=== PATIENT | female | born 1935 | race Caucasian/White ===

== ENCOUNTER → 2017-04-21 | Outpatient (CLI) | payer OTHER | END | disposition home or self-care (01) | LOC: CFH 13:47 | PROVIDERS: ATTEND Nurse Practitioner Primary Care | DX: Z12.31 Encounter for screening mammogram for malignant neoplasm of breast (principal) | CPT/HCPCS: G0202 ==

== ENCOUNTER → 2017-04-30 | Outpatient (CLI) | payer OTHER | END | disposition home or self-care (01) | LOC: CFH 13:52 | PROVIDERS: ATTEND Nurse Practitioner Primary Care | DX: R42 Dizziness and giddiness (principal) | CPT/HCPCS: 93880 ==

== ENCOUNTER → 2017-07-01 | Outpatient (CLI) | payer OTHER | END | disposition home or self-care (01) | LOC: CFH 13:38 | PROVIDERS: ATTEND Internal Medicine Cardiovascular Disease | DX: I34.8 Other nonrheumatic mitral valve disorders (principal); R55 Syncope and collapse | CPT/HCPCS: 93306 ==

== ENCOUNTER 2017-08-20 10:11 | Day surgery (SDC) | payer OTHER ==
[~2017-08-20] VITALS: Ht 168.9 cm; Wt 62.7 kg
[2017-08-20 10:46] VITALS: BP 165/78
[2017-08-20] MEDS ORDERED: LIDOCAINE 1%-EPI 1:100K, 20ML SQ PRN (11:00)
[2017-08-20] MEDS ORDERED: DULO30CA2 PO (11:02)
[2017-08-20] MEDS ORDERED: SULF1TAB23 PO (11:02)
[2017-08-20] MEDS ORDERED: [UNRECOGNIZED DRUG - CODE] PO (11:02)
[2017-08-20] MEDS ORDERED: OXYC1TAB9 PO (11:02)
[2017-08-20] MEDS ORDERED: GABA300C10 PO (11:02)
[2017-08-20] MEDS ORDERED: LIDOCAINE 2% 100MG/5ML SYRINGE ONE (11:40)
== END 2017-08-20 12:50 ==
LOC: CACL 10:11
PROVIDERS: ATTEND Internal Medicine Cardiovascular Disease
DX: R00.2 Palpitations (principal); R55 Syncope and collapse; E78.5 Hyperlipidemia, unspecified; G89.4 Chronic pain syndrome; N28.9 Disorder of kidney and ureter, unspecified; Z88.6 Allergy status to analgesic agent
CPT/HCPCS: 33282; C1764

== ENCOUNTER → 2017-12-24 | Outpatient (CLI) | payer OTHER ==
[~2017-12-24] MED LIST: ASCO100019 PO; CALC-534 PO; CYAN50003 PO; DULO30CA2 PO; FERR325T17 PO; GABA300C10 PO; LACT1CAP35 PO; MIRT30TA6 PO; MULT-717 PO; OMEG1CAP6 PO; OXYC-432 PO; SIMV20TA3 PO; SULF1TAB23 PO; TRAZ-136 PO; VITA150T PO; [UNRECOGNIZED DRUG - CODE] PO
== END | disposition home or self-care (01) ==
LOC: STAR 11:04
PROVIDERS: ATTEND Thoracic Surgery (Cardiothoracic Vascular Surgery)
DX: Z01.818 Encounter for other preprocedural examination (principal)
CPT/HCPCS: 93005

== ENCOUNTER → 2017-12-28 | Outpatient (CLI) | payer OTHER ==
[~2017-12-28] MED LIST changes: +HYDR473S51 PO
== END | disposition home or self-care (01) ==
LOC: CARD 12:20
PROVIDERS: ATTEND Registered Nurse
DX: R55 Syncope and collapse (principal); M62.81 Muscle weakness (generalized)
CPT/HCPCS: 95819

== ENCOUNTER 2018-07-06 10:40 | Outpatient (CLI) | payer MEDICARE ==
[~2018-07-06 10:40] MED LIST changes: +CEFD300C37 PO; +FERR240T11 PO; +METR500T PO; -MIRT30TA6 PO; +MIRT30TA97 PO; -TRAZ-136 PO; +TRAZ50TA66 PO; -[UNRECOGNIZED DRUG - CODE] PO
== END 2018-07-06 23:59 | disposition home or self-care (01) ==
LOC: CFH 10:40
PROVIDERS: ATTEND Anesthesiology
DX: S33.120A Subluxation of L2/L3 lumbar vertebra, initial encounter (principal); M48.54XA Collapsed vertebra, not elsewhere classified, thoracic region, initial encounter for fracture; X58.XXXA Exposure to other specified factors, initial encounter; Y93.89 Activity, other specified; Y92.89 Other specified places as the place of occurrence of the external cause; Y99.8 Other external cause status
CPT/HCPCS: 72100

== ENCOUNTER 2019-03-02 09:07 | Emergency (ER) | payer MEDICARE ==
[~2019-03-02] VITALS: Ht 167.6 cm; Wt 62.7 kg
--- NOTE | 2019-03-02 10:04 | NUR ---
PT UPRIGHT ON GURNEY AWAKE & COMFORTABLE, RESPONDS APPROP TO STAFF, NAD AT REST, COMFORT MEASURES PROVIDED, AT BS, CALL LIGHT WITHIN REACH.
[2019-03-02 10:25] LABS: BASOPHILS # (AUTO) 0.05 x10^3/uL (0-0.1); BASOPHILS % (AUTO) 0 % (0-1); EOSINOPHILS # (AUTO) 1.25 x10^3/uL (0-0.4); EOSINOPHILS % (AUTO) 11 % (1-7); LYMPHOCYTES # (AUTO) 1.96 x10^3/uL (1-3.4); LYMPHOCYTES % (AUTO) 18 % (22-44); MD NO; MEAN CORPUSCULAR HEMOGLOBIN 31.1 pg (27.0-34.8); MEAN CORPUSCULAR HGB CONC 32.3 g/dL (32.4-35.8); MEAN CORPUSCULAR VOLUME 96.3 fL (80-100); MEAN PLATELET VOLUME 7.9 fL (7.4-10.4); MONOCYTES # (AUTO) 0.91 x10^3/uL (0.2-0.8); MONOCYTES % (AUTO) 8 % (2-9); NEUTROPHILS # (AUTO) 6.92 x10^3/uL (1.8-6.8); NEUTROPHILS % (AUTO) 62 % (42-75); PLATELET COUNT 256 x10^3/uL (130-400); RED BLOOD COUNT 4.13 x10^6/uL (3.82-5.3); RED CELL DISTRIBUTION WIDTH 12.9 % (9.6-15.2)
[2019-03-02 10:27] LABS: ALANINE AMINOTRANSFERASE 20 U/L (12-78); ALBUMIN 3.5 g/dL (3.4-5.0); ANION GAP 6 mmol/L (5-15); CALCIUM 9.1 mg/dL (8.5-10.1); CHLORIDE 103 mmol/L (98-107); CREATININE 1.23 mg/dL (0.55-1.02)
[2019-03-02 10:31] LABS: ALKALINE PHOSPHATASE 76 U/L (45-117); BILIRUBIN,TOTAL 0.4 mg/dL (0.2-1.0); TROPONIN I < 0.015 ng/mL (0.000-0.045)
--- NOTE | 2019-03-02 11:01 | NUR ---
PT REMAINS UPRIGHT ON GURNEY WITH EYES CLOSED & COMFORTABLE, ABLE TO DOZE OFF, RESPONDS APPROP TO STAFF, NAD AT REST, COMFORT MEASURES PROVIDED, AT BS, CALL LIGHT WITHIN REACH.
[2019-03-02 11:59] VITALS: BP 178/79
--- NOTE | 2019-03-02 11:59 | NUR ---
PT UPRIGHT ON GURNEY AWAKE & COMFORTABLE, RESPONDS APPROP TO STAFF, NAD AT REST, COMFORT MEASURES PROVIDED, AT BS, CALL LIGHT WITHIN REACH.
--- NOTE | 2019-03-02 13:35 | NUR ---
Patien and caregiver given discharge instructions and they have confirmed that they understand the instructions. Patient pushed in wheelchair from ED room to d/c. Pt left with referral, d/c paperwork, and all personal belongings.
[2019-03-07] MEDS ORDERED: HYDR-3241 PO (22:32)
[2019-03-08] MEDS ORDERED: BIMA2.5D EACHEYE (04:28)
== END 2019-03-02 13:37 | disposition home or self-care (01) ==
LOC: ED 11:02
DX: S42.002A Fracture of unspecified part of left clavicle, initial encounter for closed fracture (principal); X58.XXXA Exposure to other specified factors, initial encounter; Y93.89 Activity, other specified; Y92.89 Other specified places as the place of occurrence of the external cause; Y99.8 Other external cause status
CPT/HCPCS: 36415; 70450; 71045; 80053; 83880; 84484; 85025; 93005; 99284

== ENCOUNTER → 2019-04-02 | Outpatient (CLI) | payer MEDICARE ==
[~2019-04-02] MED LIST changes: +BIMA2.5D EACHEYE; +CARV12.52 PO; +HYDR-3241 PO; +LISI-170 PO
== END | disposition home or self-care (01) ==
LOC: RAD 13:25
PROVIDERS: ATTEND Internal Medicine Gastroenterology
DX: K44.0 Diaphragmatic hernia with obstruction, without gangrene (principal); K21.9 Gastro-esophageal reflux disease without esophagitis; F41.9 Anxiety disorder, unspecified; F32.9 Major depressive disorder, single episode, unspecified; I10 Essential (primary) hypertension; M54.5 Low back pain; G89.29 Other chronic pain; E78.5 Hyperlipidemia, unspecified; Z85.3 Personal history of malignant neoplasm of breast; Z90.710 Acquired absence of both cervix and uterus; Z90.89 Acquired absence of other organs; Z90.722 Acquired absence of ovaries, bilateral
CPT/HCPCS: 74220

== ENCOUNTER 2019-04-09 13:04 | Emergency (ER) | payer MEDICARE ==
[~2019-04-09] VITALS: Ht 195.6 cm; Wt 65.0 kg
[2019-04-09 13:56] LABS: BASOPHILS # (AUTO) 0.06 x10^3/uL (0-0.1); BASOPHILS % (AUTO) 1 % (0-1); EOSINOPHILS # (AUTO) 0.56 x10^3/uL (0-0.4); EOSINOPHILS % (AUTO) 7 % (1-7); LYMPHOCYTES # (AUTO) 1.41 x10^3/uL (1-3.4); LYMPHOCYTES % (AUTO) 17 % (22-44); MD NO; MEAN CORPUSCULAR HEMOGLOBIN 30.8 pg (27.0-34.8); MEAN CORPUSCULAR HGB CONC 32.3 g/dL (32.4-35.8); MEAN CORPUSCULAR VOLUME 95.2 fL (80-100); MEAN PLATELET VOLUME 7.2 fL (7.4-10.4); MONOCYTES # (AUTO) 0.66 x10^3/uL (0.2-0.8); MONOCYTES % (AUTO) 8 % (2-9); NEUTROPHILS # (AUTO) 5.53 x10^3/uL (1.8-6.8); NEUTROPHILS % (AUTO) 67 % (42-75); PLATELET COUNT 352 x10^3/uL (130-400); RED BLOOD COUNT 3.76 x10^6/uL (3.82-5.3); RED CELL DISTRIBUTION WIDTH 13.3 % (9.6-15.2)
[2019-04-09] MEDS ORDERED: SODIUM CHLORIDE FLUSH 10ML SYR IVF ONE (14:00)
[2019-04-09 14:05] LABS: ALANINE AMINOTRANSFERASE 21 U/L (12-78); ALBUMIN 3.1 g/dL (3.4-5.0); ANION GAP 4 mmol/L (5-15); CALCIUM 8.6 mg/dL (8.5-10.1); CHLORIDE 107 mmol/L (98-107); CREATININE 1.07 mg/dL (0.55-1.02)
--- NOTE | 2019-04-09 14:06 | NUR ---
TRANSFORMATION ARCHITECT: PT TO ROOM VIA WHEELCHAIR AT THIS TIME.
[2019-04-09 14:07] LABS: ALKALINE PHOSPHATASE 99 U/L (45-117); BILIRUBIN,TOTAL 0.3 mg/dL (0.2-1.0); TOTAL PROTEIN 6.6 g/dL (6.4-8.2)
--- NOTE | 2019-04-09 14:25 | NUR ---
PT C/O URINARY INCONTINENCE X1 WEEK AND HASN'T HAD A REGULAR BM X1 WEEK. CONNECTED TO MONITORING. SPOUSE AT BEDSIDE. CALL LIGHT IN REACH.
--- NOTE | 2019-04-09 14:53 | NUR ---
PT AT CT
[2019-04-09] MEDS ORDERED: OMNIPAQUE 350 MG/ML, 100ML BOTTLE ONE (15:10)
--- NOTE | 2019-04-09 15:10 | NUR ---
PT BACK FROM CT. UA COLLECTED VIA STRAIGHT CATH AND TAKEN TO LAB.
[2019-04-09 15:24] LABS: MICROSCOPIC NOT IND
[2019-04-09 15:27] LABS: CULTURE INDICATED? NO
--- NOTE | 2019-04-09 15:55 | NUR ---
LINARES PLACE, DRAINING CLEAR YELLOW URINE. FLEET ENEMA ADMIN ORDERED. BEDSIDE COMMODE AT BEDSIDE FOR PT USE. AT BEDSIDE.
--- NOTE | 2019-04-09 17:00 | NUR ---
PT SITTING ON BEDSIDE COMMODE ATTEMPTING TO HAVE A BM. BLADIMIR.
[2019-04-09] MEDS ORDERED: PINK LADY ENEMA 490 ML BOTTLE PR ONE (17:30)
--- NOTE | 2019-04-09 17:53 | NUR ---
PT DID NOT HAVE ANY RESULTS FROM FLEETS ENEMA. MD ORDERED PINK LADY ENEMA. ENEMA ADMIN PER JUL. COMMODE AT BEDSIDE.
[2019-04-09 17:56] VITALS: BP 179/83
--- NOTE | 2019-04-09 18:55 | NUR ---
PT SITTING ON BEDSIDE COMMODE FOR BM.
--- NOTE | 2019-04-09 19:36 | NUR ---
PT FEELS LIKE SHE HAS GOTTEN QUITE A BIT OF STOOL OUT. PT AMBULATED TO DC WITH STEADY GAIT. ALL QUESTIONS ANSWERED AT THIS TIME.
== END 2019-04-09 20:23 | disposition home or self-care (01) ==
LOC: ED 19:34
DX: K59.00 Constipation, unspecified (principal); R10.30 Lower abdominal pain, unspecified; I10 Essential (primary) hypertension; E78.5 Hyperlipidemia, unspecified; K21.9 Gastro-esophageal reflux disease without esophagitis
CPT/HCPCS: 36415; 74177; 80053; 81003; 83690; 85025; 99284; Q9967

== ENCOUNTER 2019-07-27 11:52 | Emergency (ER) | payer MEDICARE ==
[~2019-07-27] VITALS: Ht 167.6 cm; Wt 62.0 kg
[~2019-07-27 11:52] MED LIST changes: +SIMV20TA19 PO; -SIMV20TA3 PO
[2019-07-27 12:31] LABS: MICROSCOPIC AUTO
[2019-07-27 12:35] LABS: CULTURE INDICATED? YES
[2019-07-27 13:00] LABS: BASOPHILS # (AUTO) 0.08 x10^3/uL (0-0.1); BASOPHILS % (AUTO) 1 % (0-1); EOSINOPHILS # (AUTO) 1.16 x10^3/uL (0-0.4); EOSINOPHILS % (AUTO) 17 % (1-7); LYMPHOCYTES # (AUTO) 1.76 x10^3/uL (1-3.4); LYMPHOCYTES % (AUTO) 25 % (22-44); MD NO; MEAN CORPUSCULAR HEMOGLOBIN 29.7 pg (27.0-34.8); MEAN CORPUSCULAR HGB CONC 32.8 g/dL (32.4-35.8); MEAN CORPUSCULAR VOLUME 90.6 fL (80-100); MEAN PLATELET VOLUME 7.9 fL (7.4-10.4); MONOCYTES # (AUTO) 0.44 x10^3/uL (0.2-0.8); MONOCYTES % (AUTO) 6 % (2-9); NEUTROPHILS # (AUTO) 3.56 x10^3/uL (1.8-6.8); NEUTROPHILS % (AUTO) 51 % (42-75); PLATELET COUNT 255 x10^3/uL (130-400); RED BLOOD COUNT 4.89 x10^6/uL (3.82-5.3)
--- NOTE | 2019-07-27 13:01 | NUR ---
REEL TENDER: PT WALKED BACK FROM LOBBY TO ROOM AT THIS TIME.
[2019-07-27 13:19] LABS: ALANINE AMINOTRANSFERASE 40 U/L (12-78); ALBUMIN 3.8 g/dL (3.4-5.0); ANION GAP 6 mmol/L (5-15); CALCIUM 8.9 mg/dL (8.5-10.1); CHLORIDE 107 mmol/L (98-107)
[2019-07-27 13:20] LABS: ALKALINE PHOSPHATASE 92 U/L (45-117); BILIRUBIN,TOTAL 0.4 mg/dL (0.2-1.0); TOTAL PROTEIN 7.8 g/dL (6.4-8.2)
[2019-07-27] MEDS ORDERED: HYDROmorphone 2 MG/ML, 1ML IVPush PRN (13:30)
[2019-07-27] MEDS ORDERED: SODIUM CHLORIDE FLUSH 10ML SYR IVF ONE (13:30)
[2019-07-27] MEDS ORDERED: SODIUM CHLORIDE 0.9% 1,000ML IVBOLUS ONE (13:30)
[2019-07-27] MEDS ORDERED: ONDANSETRON 2MG/ML, 2ML IVPush ONE (13:30)
[2019-07-27] MEDS ORDERED: HYDROmorphone 1 MG/ML, 1ML INJ ONE (13:49)
[2019-07-27] MEDS ORDERED: ONDANSETRON 2MG/ML, 2ML ONE (13:49)
--- NOTE | 2019-07-27 14:00 | NUR ---
PIV PLACED -MEDICATED PER EMAR LLQ PAIN AT 10/19 CT MADE AWARE PIV IN PLACE PLACED ON NIBP/POX UPDATED ON ESTIMATED POC
--- NOTE | 2019-07-27 14:05 | NUR ---
TO CT SCAN
[2019-07-27] MEDS ORDERED: OMNIPAQUE 350 MG/ML, 100ML BOTTLE ONE (14:20)
[2019-07-27] MEDS ORDERED: MIRT30TA PO (14:32)
[2019-07-27] MEDS ORDERED: TRAZ-175 PO (14:32)
[2019-07-27] MEDS ORDERED: ASPI-496 PO (14:32)
[2019-07-27] MEDS ORDERED: L.AC1CAP6 PO (14:32)
[2019-07-27] MEDS ORDERED: GABA300C10 PO (14:32)
[2019-07-27] MEDS ORDERED: HYDR-3245 PO (14:32)
--- NOTE | 2019-07-27 14:47 | NUR ---
All testing reviewed-provider made aware of testing results
--- NOTE | 2019-07-27 14:56 | NUR ---
WITH REASSESSMENT PAIN IMPROVED TO 2/10 1L NS STILL INFUSING REPORT TO TYE MOHAN
--- NOTE | 2019-07-27 15:46 | NUR ---
PT will be admitted bp is slight up aware
[2019-07-27] MEDS ORDERED: MAGNESIUM CITRATE 300ML ORAL SOL PO ONE (16:00)
[2019-07-27] MEDS ORDERED: PINK LADY ENEMA 490 ML BOTTLE PR ONE (16:09)
[2019-07-27] MEDS ORDERED: METHYLNALTREXONE 12 MG/0.6 ML SYR SQ ONE ×2 (16:10→16:14)
[2019-07-27] MEDS ORDERED: MAGNESIUM CITRATE 300ML ORAL SOL ONE (16:11)
--- NOTE | 2019-07-27 16:28 | NUR ---
given mag citrate relistor sq still waiting for pink lady called back atbed side for assist pt at bed side
--- NOTE | 2019-07-27 17:25 | NUR ---
STILL WAITING FOR ENEMA FROM PHARMACY AT BED SIDE
--- NOTE | 2019-07-27 17:30 | NUR ---
still waiting for enema for pt's bm
--- NOTE | 2019-07-27 18:02 | NUR ---
enema pink lady is going pt tolerated well during enema enfusing bed side commode at bed side
--- NOTE | 2019-07-27 18:13 | NUR ---
pt still sits on toilet after given pink lady slight bm noted given dc instruction pt is waiting for riding home
[2019-07-27 18:14] VITALS: BP 165/65
--- NOTE | 2019-07-27 18:49 | NUR ---
finally pt had huge bm pt was able to ambulate to dc home given all dc instruction vss stable
== END 2019-07-27 18:51 | disposition home or self-care (01) ==
LOC: ED 15:34
DX: K59.00 Constipation, unspecified (principal); R10.32 Left lower quadrant pain; I10 Essential (primary) hypertension; K21.9 Gastro-esophageal reflux disease without esophagitis
CPT/HCPCS: 36415; 74177; 80053; 81001; 85025; 87086; 96372; 96374; 96375; 99285; J1170; J2405; J7030; Q9967

== ENCOUNTER → 2020-02-25 | Outpatient (CLI) | payer OTHER ==
[~2020-02-25] MED LIST changes: +ASPI-496 PO; +HYDR-3245 PO; +L.AC1CAP6 PO; +MIRT30TA PO; -OXYC-432 PO; +OXYC1TAB18 PO; +TRAZ-175 PO
== END | disposition home or self-care (01) ==
LOC: CFH 13:57
PROVIDERS: ATTEND Nurse Practitioner Primary Care
DX: Z12.31 Encounter for screening mammogram for malignant neoplasm of breast (principal)
CPT/HCPCS: 77067

== ENCOUNTER → 2020-03-07 | Outpatient (CLI) | payer OTHER | END | disposition home or self-care (01) | LOC: CFH 12:30 | PROVIDERS: ATTEND Internal Medicine Cardiovascular Disease | DX: E78.2 Mixed hyperlipidemia (principal) ==